=== PATIENT | male | born 1995 | race Two or more races ===

== ENCOUNTER 2025-01-24 18:29 | Emergency (ER) | payer SELFPAY ==
[~2025-01-24] VITALS: Ht 175.3 cm; Wt 81.3 kg
[2025-01-24 18:44] VITALS: BP 132/76; PULSE 61; RESP 16; O2SAT 100
[2025-01-24] MEDS ORDERED: predniSONE 20 MG TAB PO ONE (18:45)
[2025-01-24] MEDS ORDERED: ACYCLOVIR 400 MG TAB PO ONE (18:45)
--- NOTE | 2025-01-24 19:05 | ED.PDOC ---
History of Present Illness HPI Comments 29 year old male presents to the ED with a chief complaint of LT sided facial numbness onset today (01/24/25) around 05:00. Patient states he woke up around 05:00 experiencing LT sided facial numbness/weakness as well as LT eye drooping with blurry vision. Upon ED arrival blood glucose was 71. Denies any PMHx as well as nausea, vomiting, diarrhea, abdominal pain, chest pain, shortness of breath, fever, chills, injury, fall. No other symptoms or modifying factors present at this time. Chief Complaint: Face pain Time Seen by MD: 18:50 Reviewed Notes: Medications, Allergies Allergies: Coded Allergies: NO KNOWN ALLERGIES (Unverified , 01/24/25) Information Source: Patient Mode of Arrival: Ambulatory Severity: Moderate Timing: Hours Duration: Since onset Prehospital treatment: None Past Medical History PAST MEDICAL HISTORY: Denies Surgical History: Denies all surgeries Family History Family History: Reviewed,noncontributory to illness, No family hx of Cancer, No family hx of DM, No family hx of Heart catie, No family hx of HTN, No family hx ofKidney catie, No family hx of Liver catie, No family hx of Lung catie, No family hx of Stroke Social History Smoker: Non-Smoker Alcohol: Denies ETOH Use Drugs: Denies Drug Use Lives In: Home Constitutional: denies: chills, diaphoresis, fatigue, fever, malaise, sweats, weakness, others EENTM: denies: blurred vision, double vision, ear bleeding, ear discharge, ear drainage, ear pain, ear ringing, eye pain, eye redness, hearing loss, mouth pain, mouth swelling, nasal discharge, nose bleeding, nose congestion, nose pain, photophobia, tearing, throat pain, throat swelling, voice changes, others Respiratory: denies: cough, hemoptysis, orthopnea, SOB at rest, shortness of breath, SOB with excertion, stridor, wheezing, others Cardiovascular: denies: chest pain, dizzy spells, diaphoresis, Dyspnea on exer tion, edema, irregular heart beat, left arm pain, lightheadedness, palpitations, PND, syncope, others Gastrointestinal: denies: abdomen distended, abdominal pain, blood streaked bowels, constipated, diarrhea, dysphagia, difficulty swallowing, hematemesis, melena, nausea, poor appetite, poor fluid intake, rectal bleeding, rectal pain, vomiting, others Genitourinary: denies: burning, dysuria, flank pain, frequency, hematuria, incontinence, penile discharge, penile sore, pain, testicle pain, testicle swelling, urgency, others Neurological: reports: numbness (LT sided facial ), weakness (LT sided facial ), others (LT eye drooping); denies: dizziness, fainting, headache, left sided numbness, left sided weakness, paresthesia, pre-existing deficit, right sided numbness, right sided weakness, seizure, speech problems, tingling, tremors Musculoskeletal: denies: back pain, gout, joint pain, joint swelling, muscle pain, muscle stiffness, neck pain, others Integumetry: denies: bruises, change in color, change in hair/nails, dryness, laceration, lesions, lumps, rash, wounds, others Allergic/Immunocompromised: denies: Difficulty Healing, Frequent Infections, Hives, Itching, others Hematologic/Lymphatic: denies: anemia, blood clots, easy bleeding, easy bruising, swollen glands, others Endocrine: denies: excessive hunger, excessive sweating, excessive thirst, excessive urination, flushing, intolerance to cold, intolerance to heat, unexplained weight gain, unexplained weight loss, others Psychiatric: denies: anxiety, bipolar disorder, depression, hopeless, panic disorder, schizophrenia, sleepless, suicidal, others All Other Systems: Reviewed and Negative Physical Exam General Appearance: No Apparent Distress, Normal HEENT: Normal ENT Inspection, Pharynx Normal, TMs Normal Neck: Full Range of Motion, Non-Tender, Normal, Normal Inspection Respiratory: Chest Non-Tender, Lungs Clear, No Accessory Muscle Use, No Respiratory Distress, Normal Breath Sounds Cardiovascular: No Edema, No JVD, No Murmur, No Gallop, Normal Peripheral Pulses, Regular Rate/Rhythm Breast Exam: Deferred Gastrointestinal: No Organomegaly, Non Tender, No Pulsatile Mass, Normal Bowel Sounds, Soft Genitalia: Deferred Pelvic: Deferred Rectal: Deferred Extremities: No calf tenderness, Normal capillary refill, Normal inspection, Normal range of motion, Non-tender, No pedal edema Musculoskeletal : Apperance: Normal Neurologic: Alert, rfid manager II-XII nml as Tested, No Motor Deficits, Normal Mood, R/L Numbness (LT sided facial numbness/weakness on forhead, able to close eye), Other (LT sided facial numbness/weakness on forhead, able to close eye) Cerebellar Function: Normal Reflexes: Normal Skin: Dry, Normal Color, Warm Lymphatic: No Adenopathy Was a procedure done? Was a procedure done?: No Differential Dx Considerations may include: Segovia's palsy, Lyme X-Ray, Labs, Meds, VS Vital Signs Date Time Temp Pulse Resp B/P (MAP) Pulse Ox O2 Delivery O2 Flow Rate FiO2 01/24/25 18:44 97.0 61 16 132/76 (94) 100 Lab Test 01/24/25 18:41 Range/Units POC Glucose 71 70-106 mg/dl Time of 1ST Reevaluation: 19:20 Reevaluation 1ST: Unchanged Patient Education/Counseling: Diagnosis, Treatment, Prognosis Family Education/Counseling: No Family Present Departure 1 Departure Time of Disposition: 20:03 (Patient presented with Segovia's palsy they had he has facial involvement we then involves the forehead. We will discharge patient home with outpatient follow up) Impression: Primary Impression: Segovia's palsy Disposition: 01 HOME / SELF CARE / HOMELESS Condition: Stable Additional Instructions: You have Segovia's Palsy. This is inflamation of your facial nerve. This can be caused by a virus. You were prescribed antiviral medication and steroids. Please take as directed. You should use eye drops to prevent your eye from drying out. You can tape your eye shut when you sleep to keep it from drying out. It is important to follow up with your regular doctor within one week. If your symptoms worsen or you have any other concerns then please return to the ER. e-Prescriptions Valacyclovir Hcl (Valtrex) 1 Gm Tab 1 TAB PO TID for 7 Days, #21 TAB Prov: REGLA VAZQUEZ MD 01/24/25 Prednisone (Prednisone) 20 Mg Tab 80 MG PO DAILY for 7 Days, #28 MG Prov: REGLA VAZQUEZ MD 01/24/25 Discharged With: Self Critical Care Note Critical Care Time?: No Stability Stability form required: No I personally scribed for REGLA VAZQUEZ MD ([email or web address]) on 01/24/25 at 19:05. Electronically submitted by Jazmine Lilly ([email or web address]). REGLA VAZQUEZ MD Jan 24, 2025 19:05
[2025-01-24] MEDS ORDERED: PRED20TA2 PO (20:11)
[2025-01-24] MEDS ORDERED: VALA1TAB PO (20:11)
== END 2025-01-25 02:44 | disposition home or self-care (01) ==
LOC: ER 18:29
DX: G51.0 Bell's palsy (principal)
CPT/HCPCS: 82947; 82962